=== PATIENT | female | born 1950 | race Caucasian/White ===

== ENCOUNTER → 2018-07-09 06:41 | Outpatient (CLI) | payer MEDICARE, MEDICAID, SELFPAY ==
--- NOTE | 2018-07-09 06:46 | NM_ITS ---
History and Indications: Obesity, hypertension, diabetes, chest pain and fatigue Procedure: She received a 0.4 mg of intravenous Lexiscan, resting heart rate was 87 bpm resting blood pressure 123/57, with Lexiscan maximum heart rate achieved was 89 bpm which is less than 85% of the maximum predicted heart rate and a blood pressure was 101/47. With Lexiscan patient complained of chest pressure and shortness of breath. Electrocardiogram: Resting electrocardiogram showed sinus rhythm nonspecific ST-T changes were not with progression, with Lexiscan there is less than 1.[address] segment depression noted from the baseline EKG. The EKG portion of the Lexiscan Myoview is nondiagnostic. Cardiac stress and resting SPECT images: Cardiac stress and resting SPECT images were obtained using technetium 99 Myoview 31.9 mCi stress and 9.4 mCi at rest, gated SPECT further analysis of segmental wall motion and calculation of the ejection fraction also done. Cardiac stress and resting SPECT images show a mild fixed defect in the lateral wall with normal likely secondary to soft tissue attenuation, no reversible ischemia seen. Computer derived ejection fraction is over 65% with no regional wall motion abnormality, right ventricle is normal size and contractility. Conclusion: 1. The EKG portion of the Lexiscan Myoview is nondiagnostic. 2. A mild fixed defect in the lateral wall is likely secondary to soft tissue attenuation, no reversible ischemia seen. Computer derived ejection fraction is over 65% with no regional wall motion abnormality, right ventricle is normal size and contractility. 3. Likely normal myocardial perfusion imaging, study is technically limited due to patient's body habitus.
--- NOTE | 2018-07-09 06:46 | CA_ITS ---
PROCEDURE: 2-D M-mode and color Doppler study INDICATIONS FOR THE TEST: Chest pain+ COPD+ Heart Murmur Tobacco Smoking Palpitations Fatigue+ Syncope Edema+ Hypertension+Diabetes Mellitus+ Rheumatic Fever SOB+MCLEAN+Obesity+Hyperlipidemia Family History HD Additional History old CVA, Patient was immobile, scanning was done in wheelchair PATIENT INFORMATION HEIGHT: 60 WEIGHT:175 GENDER: Female B/P: 116/67 2-D/M-MODE INTERPRETATION: 2-D MEASUREMENTS OBSERVED VALUES IN CMS Right Ventricular Dimension (RVDd) Interventricular Septum (Thickness)(IVsd) 1.4 Left Ventricular Internal Dimensions(LVIDd) 2.8 Left Ventricular Posterior Wall (Thickness)(LVPWd) 1.4 Aortic Root Aortic Cusp Separation Left Atrial Dimensions (LAD) 2D 1. Technically very difficult and limited study performed 2. The left atrium is normal size, left ventricle is normal size, mild concentric left ventricular hypertrophy, preserved left ventricular systolic function visually estimated ejection fraction 55% with no regional wall motion abnormality in the obtained views. 3. The right-sided chambers appears to be grossly normal and function. 4. The aortic valve morphology is not well visualized. 5. The mitral and tricuspid valvular grossly normal. 6. Trivial pericardial effusion noted. DOPPLER INTERROGATION: Doppler interrogation of the aortic, mitral and tricuspid valvular presence of mild mitral and tricuspid regurgitation, tricuspid regurgitation jet velocity is inadequate for calculation of the right ventricular systolic pressure, diastolic parameters are inconclusive. CONCLUSION: 1. Technically very difficult study because of the patient's factor and poor acoustic windows Limited views were obtained. 2. Normal left ventricular size, preserved left ventricular systolic function, visually estimated ejection fraction 55% in the obtained views with no regional wall motion abnormality, diastolic parameters are inconclusive. 3. Mild mitral and tricuspid regurgitation 4. Trivial pericardial effusion noted.
== END ==
PROVIDERS: PCP Internal Medicine Adolescent Medicine; Visit Provider Internal Medicine Cardiovascular Disease
DX: E11.9 Type 2 diabetes mellitus without complications (principal); I10 Essential (primary) hypertension; R06.00 Dyspnea, unspecified; R07.9 Chest pain, unspecified; R94.31 Abnormal electrocardiogram [ECG] [EKG]; Z01.810 Encounter for preprocedural cardiovascular examination
CPT/HCPCS: 78452; 93017; 93308; A9502; J2785